=== PATIENT | male | born 1945 | race Caucasian/White ===

== ENCOUNTER 2020-05-23 10:21 | Emergency (ER) | payer MEDICARE, OTHER, SELFPAY ==
[2020-05-23 10:22] VITALS: BP 147/94; PULSE 117; RESP 18; TEMP 36.4; O2SAT 97; BMI 29.4
--- NOTE | 2020-05-23 10:37 | CT_ITS ---
STUDY: CTA CHEST REASON FOR EXAM: Male, 74 years old. SOB SINCE FRIDAY RADIATION DOSAGE (If Supplied By Facility): CTDIvol = ( 18.25 ) mGy, DLP = ( 555.92 ) mGycm TECHNIQUE: The examination was performed with the intravenous administration of 100 CC ISOVUE 370. Post-processing of the angiographic images was performed, with multiplanar reformation and 3D reconstruction. Individualized dose optimization techniques were used for this CT. COMPARISON: None. FINDINGS: Normal enhancement of the main pulmonary artery and right and left pulmonary arteries. Normal enhancement of the bilateral peripheral pulmonary arteries. There is no demonstrated pulmonary embolism. There is atherosclerotic calcification of the aortic arch with tortuosity. There is no demonstrated aortic dissection. Normal heart and pericardium. Normal mediastinum. Normal hilar regions. Normal visualized trachea and bronchi. The lungs are well expanded. Normal pulmonary parenchyma. Normal pleura. Normal chest wall structures. There is mild old compression fracture of T3. Normal visualized upper abdomen. CT/CTA Chest W/WO Contrast IMPRESSION: No demonstrated pulmonary embolism or arterial dissection. Electronically Signed: Kunal Jaffe, at 12:19 EDT Tel , Service support ,
--- NOTE | 2020-05-23 10:37 | EKG12_ITS ---
Test Reason : SOB Blood Pressure : / mmHG Vent. Rate : 105 BPM Atrial Rate : 105 BPM P-R Int : 144 ms QRS Dur : 096 ms QT Int : 340 ms P-R-T Axes : 033 -49 058 degrees QTc Int : 449 ms Sinus tachycardia with occasional Premature ventricular complexes Left axis deviation Inferior infarct , age undetermined Abnormal ECG Confirmed by VIVIAN SULLIVAN ([id number]), editor book APRIL MCKENNA ([id number]) on 05/29/2020 9:55:08 AM Referred By: JOSE Confirmed By:VIVIAN SULLIVAN
--- NOTE | 2020-05-23 10:38 | ED.VISSUMM ---
- ER Visit Summary Date of Service: 05/23/20 Chief Complaint: Shortness of breath History of Present Illness: The patient is a 74 M who presents with shortness of breath. He has had this for the past 4 days. He states is getting a little bit worse. He tried exerting himself more today and it caused more shortness of breath. He has no cough. No fevers. He denies chest pain. No history of DVT or PE. He denies any leg swelling. He has a history of prostate cancer with metastases. He is on chemotherapy currently. He recently started a new chemotherapy medications. His oncologist directed him to the ER for further evaluation of the shortness of breath. Physical Examination: Vital signs reviewed. HEENT exam unremarkable. Heart is tachycardic and regular rhythm without murmurs. Lungs are clear to auscultation. Abdomen is soft and nontender. Extremities reveal no edema. Skin exam normal. Neurologic exam normal. Test Results: EKG is sinus rhythm with rate of 105. No ST changes. Laboratory studies show a white blood count of 1.6, platelets of 104. Sodium 135. Troponin is normal. BNP 14. CT of the chest reveals no acute abnormalities. Emergency Department Course and Treatment: The patient feels well laying in bed. His shortness of breath does get worse with exertion. I do not feel that this is cardiac in nature. His EKG and troponin are normal. His repeat heart rate is 95. I discussed this with Dr. Marcus, on-call for Dr. Bell. They feel that likely may be due to his chemotherapy medications as he just had tecentriq added to his carboplatin and etoposide. Patient has a follow-up tomorrow to have outpatient ultrasounds of his legs. I do not feel these need to be done today as he has no swelling or pain in his legs. Patient will be discharged. Treatment Plan: [] Disposition: Discharge Impression: Dyspnea This note was generated with [email or web address] dictation software. It may contain incorrect words, spelling, and punctuation that were not noted in review of the chart prior to signing ED Disposition - Plan for ED Patient: Disposition: Home or Assisted Living Instructions: ED Dyspnea Referrals: [facility] Doctor,Out of [NON-STAFF] - Mauro Bell DO [STAFF PHYSICIAN] -
[2020-05-23 10:39] VITALS: BP 147/94; PULSE 117; RESP 18; TEMP 36.4; O2SAT 97
--- NOTE | 2020-05-23 10:40 | NURSING ---
NO OLD EKGS
[2020-05-23 11:07] LABS: Absolute Lymphocyte Count 0.46 X10^3/uL (0.83-4.51); Absolute Neutrophil Count 0.9 X10^3/uL (2.0-7.7); Basophil# 0.02 X10^3/uL; Basophil% 1.3 % (0-1); Eosinophil# 0.03 X10^3/uL; Eosinophils% 1.9 % (0-5); Hematocrit 37.3 % (40-54); Hemoglobin 12.6 g/dL (13.0-16.5); Lymphocyte # 0.46 X10^3/ul (4.0); Lymphocyte % 29.5 % (19-41); Mean Corp Hgb Conc 33.8 g/dL (32-36); Mean Corpuscular Hgb 29.7 pg (27.0-32.0); Mean Platelet Vol. 9.4 fl (6.2-12.0); Monocyte% 6.4 % (0-10); NRBC Flagged by Analyzer 0 % (0-5); Neutrophil # 0.94 X10^3/uL (2.7-7.7); Neutrophil % 60.3 % (47-70); POSITIVE DIFFERENTIAL YES; POSITIVE MORPHOLOGY YES; Platelet Count 104 K/mm3 (150-450); RBC Distribution Width CV 14.8 % (11.6-14.6); RBC Distribution Width SD 47.5 fl (35.1-43.9); Red Blood Count 4.24 M/mm3 (4.6-6.2); White Blood Count 1.6 K/mm3 (4.4-11.0)
[2020-05-23 11:24] LABS: Anion Gap 7 (5-15); BUN 26 mg/dL (7-18); BUN/Creat Ratio 23.2 RATIO (10-20); Calcium,Total 9.4 mg/dL (8.5-10.1); Chloride 104 mmol/L (98-107); Creatinine, Serum 1.12 mg/dL (0.70-1.30); EST Glomerular Filtration Rate 68 mL/min (>60); Est Glom Filt Rate - Afr Amer 82 mL/min (>60); Estimated Creatinine Clearance 63.51 ml/min; Glucose 150 mg/dL (74-106); Potassium 4.3 mmol/L (3.5-5.1); Sodium Level 135 mmol/L (136-145)
[2020-05-23 11:27] LABS: Differential Indicated SCAN CRITERIA MET
[2020-05-23 11:28] LABS: Dohle Bodies 4+
[2020-05-23 11:31] VITALS: BP 164/85; PULSE 112; RESP 18; TEMP 36.4; O2SAT 97
[2020-05-23 12:00] VITALS: BP 173/100; PULSE 96; RESP 18; TEMP 37.2; O2SAT 98
--- NOTE | 2020-05-23 12:21 | ED.RN ---
isolation precautions not ordered for patient due to low clinical suspicion by ed dr. dr coronado is testing patient related to patient's request for testing. carli kwon rn [id number]
[2020-05-23 12:27] VITALS: BP 173/100; PULSE 95; RESP 17; O2SAT 96
[2020-05-23 12:59] VITALS: BP 170/100; PULSE 96; RESP 15; O2SAT 97
[2020-05-24 00:18] LABS: Reactive Lymphocyte RARE
[2020-05-24 12:48] LABS: Pathologist Review Reviewed
== END 2020-05-23 13:00 | disposition home or self-care (01) ==
PROVIDERS: Emergency Provider Emergency Medicine
DX: R06.00 Dyspnea, unspecified (principal); C61 Malignant neoplasm of prostate; C79.9 Secondary malignant neoplasm of unspecified site; Z79.82 Long term (current) use of aspirin; Z79.899 Other long term (current) drug therapy
CPT/HCPCS: 71275; 80048; 83880; 84484; 85025; 87635; 93005; 94799; 99284; Q9967; A4216; U0003

== ENCOUNTER → 2020-07-13 07:13 | Outpatient (CLI) | payer MEDICARE, OTHER, SELFPAY ==
[2020-07-13 07:58] VITALS: BP 131/65; PULSE 79; RESP 16; TEMP 36.7; O2SAT 100; BMI 29.7
[2020-07-13] MEDS: 0.9% NaCl VAD Flush IV (08:47)
[2020-07-13 09:02] VITALS: BP 119/70; PULSE 90; RESP 16; TEMP 37.1; O2SAT 100
[2020-07-13 10:02] VITALS: BP 117/63; PULSE 82; RESP 16; TEMP 36.7; O2SAT 100
[2020-07-13 10:42] VITALS: BP 128/59; PULSE 80; RESP 16; TEMP 36.9; O2SAT 100
== END ==
PROVIDERS: Referring Provider Internal Medicine Hematology & Oncology; Visit Provider Internal Medicine Hematology & Oncology
DX: D64.81 Anemia due to antineoplastic chemotherapy (principal); T45.1X5A Adverse effect of antineoplastic and immunosuppressive drugs, initial encounter; Y92.9 Unspecified place or not applicable
CPT/HCPCS: 36415; 36430; 86850; 86900; 86901; 86920; 86922; J7040; P9016; A4216

== ENCOUNTER → 2020-12-19 12:51 | Outpatient (CLI) | payer MEDICARE, OTHER, SELFPAY ==
[2020-07-13 07:58] VITALS: BMI 29.7
[2020-12-19 12:59] VITALS: BP 136/68; PULSE 94; RESP 16; TEMP 36.1; O2SAT 100; BMI 27.8
[2020-12-19] MEDS: 0.9% NaCl VAD Flush IV (13:21)
[2020-12-19 13:46] VITALS: BP 121/66; PULSE 90; RESP 16; TEMP 37; O2SAT 99
[2020-12-19 14:16] VITALS: BP 117/52; PULSE 79; RESP 16; TEMP 36.7; O2SAT 97
== END ==
PROVIDERS: Referring Provider Internal Medicine Hematology & Oncology; Visit Provider Internal Medicine Hematology & Oncology
DX: D64.81 Anemia due to antineoplastic chemotherapy (principal); T45.1X5A Adverse effect of antineoplastic and immunosuppressive drugs, initial encounter; Y92.9 Unspecified place or not applicable
CPT/HCPCS: 36430; 86900; 86901; 86965; J7040; P9035; A4216

== ENCOUNTER → 2020-12-26 10:15 | Outpatient (CLI) | payer MEDICARE, OTHER, SELFPAY ==
[2020-12-19 12:59] VITALS: BMI 27.8
--- NOTE | 2020-12-26 10:30 | CT_ITS ---
STUDY: CT CHEST, ABDOMEN T PELVIS WITH CONTRAST REASON FOR EXAM: Male, 75 years old. 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 Multiplanar coronal and sagittal images were reformatted. Individualized dose optimization techniques were used for this CT. COMPARISON: No relevant priors. FINDINGS: CHEST There are mild interstitial increased opacities in the lungs. There is no demonstrated pleural abnormality. There are calcifications of the coronary arteries. Normal mediastinum. Normal hilar regions. Normal unenhanced pulmonary arteries. There is atherosclerotic calcification of the aortic arch with tortuosity and elongation of the aortic arch and descending thoracic aorta. There are multi-level degenerative changes of the thoracic spine. There is 0.9 cm nonspecific sclerosis of the T10 vertebra and of the lower cervical spine. There are multiple enhancing masses in the liver. ABDOMEN The visualized lung bases are unremarkable. The visualized portions of the heart are within normal limits. There are multiple, greater than 10 low density enhancing masses of the liver measuring up to 4.5 cm. There are multiple gallstones. There is mild splenomegaly. Normal pancreas. Normal bilateral adrenal glands. Normal right kidney. There is 0.5 cm hypodensity compatible with cyst of the left kidney. Normal visualized stomach. There is postoperative change involving small intestine and colon. There is non-visualization of the appendix. There is diffuse atherosclerotic calcification of the abdominal aorta, without a demonstrated aneurysm. Normal inferior vena cava. Normal retroperitoneum. There is urostomy in the right lower abdomen. There are diffuse degenerative changes of the visualized lumbar spine. PELVIS Postoperative change with resection of the urinary bladder. There is urostomy in the right lower abdomen. Postoperative changes of small intestine and visualized colon. There is no pelvic fluid. There is no pelvic lymphadenopathy or mass lesion. Normal visualized pelvic arteries. Postoperative changes in abdominal wall. There is sclerosis of the right sacrum. There is complex fluid and air collection at the iliopsoas bursa. CT/CT Chest, Abd, Pel w/Contrast IMPRESSION: Postoperative changes including cystectomy and ileal conduit with right lower quadrant urostomy. No hydronephrosis. No obstruction. Multiple masses in the liver consistent with metastatic disease. Sclerotic osseous lesions consistent with metastatic disease. Multiple gallstones. No biliary dilatation. Splenomegaly. Iliopsoas bursal collection containing fluid and air. Electronically Signed: Messi Tiwari MD at 11:30 EDT , Service support ,
== END ==
PROVIDERS: Referring Provider Internal Medicine Hematology & Oncology; Visit Provider Internal Medicine Hematology & Oncology
DX: R91.8 Other nonspecific abnormal finding of lung field (principal); C79.71 Secondary malignant neoplasm of right adrenal gland; C67.9 Malignant neoplasm of bladder, unspecified; C61 Malignant neoplasm of prostate; C7A.1 Malignant poorly differentiated neuroendocrine tumors; C79.51 Secondary malignant neoplasm of bone; D64.81 Anemia due to antineoplastic chemotherapy; T45.1X5A Adverse effect of antineoplastic and immunosuppressive drugs, initial encounter; Y92.9 Unspecified place or not applicable
CPT/HCPCS: 71260; 74177; 86850; 86900; 86901; 86920; 86922; Q9967

== ENCOUNTER 2020-12-27 07:51 | Outpatient (CLI) | payer MEDICARE, OTHER, SELFPAY ==
[2020-12-19 12:59] VITALS: BMI 27.8
[2020-12-27] VITALS (7 sets, daily range): BP systolic 100–124; BP diastolic 52–65; PULSE 62–94; RESP 16; TEMP 36–37.1; O2SAT 98–100; BMI 27.2
== END 2020-12-27 16:00 | disposition home or self-care (01) ==
LOC: MEDOUTP 07:52
PROVIDERS: Referring Provider Internal Medicine Hematology & Oncology; Visit Provider Internal Medicine Hematology & Oncology
DX: D64.81 Anemia due to antineoplastic chemotherapy (principal); T45.1X5A Adverse effect of antineoplastic and immunosuppressive drugs, initial encounter; Y92.9 Unspecified place or not applicable
CPT/HCPCS: 36430; 86644; 86850; 86900; 86901; 86920; 86922; P9016; A4216

== ENCOUNTER 2021-01-15 07:36 | Day surgery (SDC) | payer MEDICARE, OTHER, SELFPAY ==
[2020-12-27 08:22] VITALS: BMI 27.2
--- NOTE | 2021-01-03 12:00 | NURSING ---
PATIENT HAD PFIZER VACCINE DOSE 2 12/22/20
[2021-01-15 08:17] VITALS: BP 142/68; PULSE 90; RESP 16; TEMP 36.7; O2SAT 98; BMI 26.5
[2021-01-15 08:41] LABS: Absolute Lymphocyte Count 0.66 X10^3/uL (0.83-4.51); Basophil# 0.01 X10^3/uL; Basophil% 0.2 % (0-1); Eosinophil# 0.03 X10^3/uL; Eosinophils% 0.5 % (0-5); Lymphocyte # 0.66 X10^3/ul (4.0); Lymphocyte % 10.1 % (19-41); Mean Corpuscular Hgb 28.9 pg (27.0-32.0); Mean Corpuscular Volume 90.3 fL (80-94); Mean Platelet Vol. 9.8 fl (6.2-12.0); Monocyte# 0.69 X10^3/uL; Monocyte% 10.6 % (0-10); NRBC Flagged by Analyzer 0 % (0-5); Neutrophil # 5.02 X10^3/uL (2.7-7.7); Neutrophil % 76.6 % (47-70); Platelet Count 118 K/mm3 (150-450); RBC Distribution Width CV 19.2 % (11.6-14.6); RBC Distribution Width SD 51.2 fl (35.1-43.9); Red Blood Count 2.77 M/mm3 (4.6-6.2); White Blood Count 6.5 K/mm3 (4.4-11.0)
--- NOTE | 2021-01-15 09:51 | HP.PCM_ITS ---
History and Physical Date of Admission: 01/15/21 HISTORY AND PHYSICAL ? Landon Santo 1945 ? ? REFERRING PHYSICIAN: ??Mauro Bell DO ? CHIEF COMPLAINT: ??No chief complaint on file. ? HPI: The patient is a 75 year old adult with a diagnosis of?Vascular catheter fitting or adjustment ?(primary encounter diagnosis). ?Landon is currently scheduled to undergo chemotherapy and needs vascular access for treatment. ?The patient denies a prior history of central venous access. ? ? The patient is?right?hand dominant. ? ? The patient is being seen by me today at the request of ?Arabella?for my opinion and advice regarding port.? ? ? PAST MEDICAL HISTORY PAST MEDICAL HISTORY Diagnosis Date ? BPH (benign prostatic hyperplasia) ? ? Colon tumor ? ? Diverticulitis ? ? Dry eye ? ? Hyperlipidemia ? ? Malignant neoplasm of prostate (HCC) ? ? ? PAST SURGICAL HISTORY PAST SURGICAL HISTORY Procedure Laterality Date ? ANESTHESIA TOTAL CYSTECTOMY ? 10/15/2017 ? APPENDECTOMY ? at 16/17 years old ? COLONOSCOPY ? 2011 ? started age 40 ? LAPAROSCOPIC HEMICOLECTOMY ? 10/15/2017 ? d/t diverticulitis ? PAST SURGICAL HISTORY OF ? 1971 ? Repair Left tibia fx ? PROSTATECTOMY;RADICAL RETROPUBIC ? 2014 ? TOTAL KNEE REPLACEMENT ? 05/18/2013 ? Knee replacement, total ? ? CURRENT MEDICATIONS Current Outpatient Medications Medication Sig Dispense Refill ? sulfamethoxazole-trimethoprim (BACTRIM DS,SEPTRA DS) 800-160 mg per tablet Take 1 tablet by mouth once daily. 90 tablet 3 ? acyclovir (ZOVIRAX) 400 mg tablet Take 1 tablet by mouth twice daily. 180 tablet 3 ? OTC PRODUCT Catalyn: Take three tablets by mouth once daily. ? ? ? loratadine (CLARITIN) 10 mg tablet Take 10 mg by mouth once daily as needed. ? ? ? naproxen sodium (ALEVE) 220 mg cap Take 2 Each by mouth daily at bedtime. ? ? ? ondansetron (ZOFRAN) 8 mg tablet Take 1 tablet by mouth every 8 hours as needed (For chemo induced nausea). FOR NAUSEA 30 tablet 2 ? calcium carbonate/vitamin D2 (CALCIUM 600 WITH VITAMIN D ORAL) Take 1 tablet by mouth once daily. ? psyllium husk (METAMUCIL ORAL) Take 2 Tablespoonsful by mouth once daily. ? pantoprazole DR (PROTONIX) 40 mg tablet Take 40 mg by mouth once daily. Using PRN ? atorvastatin 40 mg tablet Take 40 mg by mouth once daily. ? ? ? aspirin 325 mg tablet Take 325 mg by mouth once daily. ? ? ? [place]-3 Fatty Acids-Vitamin E (FISH OIL) 1,000 mg cap Take 1 capsule by mouth once daily. ? No current facility-administered medications for this visit. ? ALLERGIES:?Patient has no known allergies. ? PERSONAL HISTORY:? SOCIAL HISTORY Social History ? Tobacco Use ? Smoking status: Former Smoker ? ? Packs/day: 1.00 ? ? Years: 9.00 ? ? Pack years: 9.00 ? ? Types: Cigarettes ? ? Quit date: 01/08/2008 ? ? Years since quittin.9 ? Smokeless tobacco: Never Used Vaping Use ? Vaping Use: Never used Substance Use Topics ? Alcohol use: Yes ? ? Comment: 4 beers / week ? Drug use: No ? FAMILY HISTORY:? FAMILY HISTORY FAMILY HISTORY Problem Relation Age of Onset ? Ischemic Heart Disease Father ? ? other (Bone Cancer) Father ? ? other (Lung Cancer) Mother ? ? Cancer Sister ? ? REVIEW OF SYMPTOMS: ??The review of systems data was entered by the nurse and reviewed by me ? Nursing Notes: Nadine Tavares RN ?01/01/2021 ?4:28 PM ?Signed REVIEW OF SYSTEMS: ?General:???The patient denies fatigue, denies weight loss, denies weight gain, denies feeling hot, and denies feelings of cold. ?Eyes: ?The patient denies glaucoma, denies eye injury/surgery, does not wear glasses or contacts. ?Ear/Nose/Throat: ?The patient denies allergies, denies hayfever, denies ear infections, and denies bloody noses. ?Cardiovascular: ?The patient denies chest pain, denies heart disease, denies high blood pressure,denies cardiac stent, denies prior heart attack, denies irregular heart beat, notes high cholesterol, ?denies poor circulation, denies heart failure, other cardiac issues, denies claudication, denies cold feet, denies peripheral arterial stent. ?Respiratory: ?The patient denies tuberculosis, denies pneumonia, denies frequent cough, denies pulmonary embolism, denies shortness of breath, and denies coughing up blood. ?Gastrointestinal: ?The patient denies difficulty swallowing, notes acid reflux, denies ulcers, denies vomiting, denies jaundice/hepatitis, denies gallbladder problems, denies black or tarry stools, denies hemorrhoids, denies bleeding from rectum, denies diverticulitis, denies constipation, denies diarrhea, denies loss of stool control, and denies hernias. ?Kidney/Bladder: ?The patient denies kidney stones, notes urine infections, and denies bloody urine. ?Skin: ?The patient notes a history of skin cancer, denies bleeding/changing moles, and denies a history of skin rash. ?Neurologic: ?The patient denies a history of epilepsy/convulsions, denies headaches, denies head/spinal injuries, and denies stroke/TIA. ?Psychiatric: ?The patient denies psychiatric medications, denies depression, and denies voices, denies substance abuse. ?Endocrine: ?The patient denies thyroid disorders, denies diabetes, and denies hormonal problems. ?Hematologic: ?The patient denies a history of bruising, denies bleeding, and denies anemia, denies blood clots. ?Infections: ?The patient denies a history of measles and mumps, denies rheumatic fever, and denies sexually transmitted diseases. ?Musculoskeletal: ?The patient denies back pain/injury, denies back problems, denies sciatica, denies knee/foot trouble, denies arthritis, or denies gout. ? ? When was patient's last Mammogram screening? N/A ? ?Last Colonoscopy: ?unknown ? Nadine Tavares RN ? ? PHYSICAL EXAMINATION: ? General: ?The patient is 75 year old adult, well nourished, well hydrated in no acute distress. ?The patient is oriented to time, place, and person. ? VITALS:?There were no vitals taken for this visit.?There is no height or weight on file to calculate BMI.? ? HEENT: ?Normal cephalic, ataumatic, pupils are equally round, sclera are anict cy, mucous membranes are moist, oropharynx is clear. ?Neck has no masses, asymmetry or lymphadenopathy. ?Thyroid is unremarkable. ? Respiratory: ?Clear to auscultation and percussion. ?Normal respiratory excursion and pattern. ? Cardiac: ?Examination is regular rate and rhythm. ? Abdominal exam: ?Soft, nontender, ?with no palpable masses. ?No hepatosplenomegaly. ?No palpable hernias. ? Rectal exam:??exam deferred ? Extremities: ?no clubbing, cyanosis or edema. ?No adenopathy. ? Other: ? ? LABORATORY VALUES: As Noted ? RADIOLOGIC STUDIES: ?As Noted ? Assessment ? IMPRESSION:??Vascular catheter fitting or adjustment ?(primary encounter diagnosis), need for IV access ? PLAN: ??I plan to perform a right internal jugular?port a cath placement. ?The planned surgical procedure was discussed extensively with the patient. ?The risks, benefits, anticipated outcomes and possible complications were mentioned. ?My staff has also explained the procedure in understandable terms and the patient was given the option to take printed material concerning the planned procedure. ?The patient had the opportunity to ask questions concerning the planned procedure. ?The patient freely consents to the planned procedure. ? Planned Procedure:???right??Internal Jugular Portacath - [id number] ? Patient Weight ?Last 1 Encounter Wt Readings: ???Date: ?Wt: ???12/26/2020 ??91.2 kg (201 lb) ? Antibiotic:???Ancef 2gm IVPB carton counter feeder to OR ? Planned Anesthetic:?MAC with local? I?wont?plan to access the port at the time of surgery. ? Diagnoses:?(Z45.2) Vascular catheter fitting or adjustment ?(primary encounter diagnosis) ? ? ? The patient is being seen by me today at the request of ?for my opinion and advice regarding Vascular catheter fitting or adjustment ?(primary encounter diagnosis).? ? COVID (Procedure Consent) Procedure Criteria ? Procedure Criteria: Yes Elective ?The surgeon/proceduralist and patient have discussed in detail the risk of exposure to and/or potential harm posed by the COVID-19 virus with having a surgery/procedure at this time versus the risk of??delaying the surgery/procedure. It is not possible to know either the risk of delaying the surgery or procedure or chance of getting an infection with perfect accuracy, but a joint decision was made between the patient and the surgeon/proceduralist ?to proceed at this time with the scheduled surgery/procedure as indicated on the consent form. ? Cayden Amado III, MD I have re-examined the patient. There are no clinical changes since date of exam.
[2021-01-15] MEDS: Cefazolin 2 GM in 0.9% Normal Saline 100 ML IV (11:13)
[2021-01-15] MEDS: Bupivacaine Mpf 0.5% 30 ML VIAL (11:36)
[2021-01-15] MEDS: Lidocaine 1% (30 ml sdv) 30 ML Vial (11:36)
--- NOTE | 2021-01-15 11:43 | PCM.OPRPT ---
Problem List (1) Vascular catheter fitting or adjustment Status: Acute Report of Operation Date of Procedure: 01/15/21 Pre-Operative Diagnosis: Vascular fitting and adjustment Post-Operative Diagnosis: Same Surgery/Procedure Performed:: Placement of a right internal jugular PowerPort. Type of Anesthesia:: Local MAC Anesthesiologist: Bryn Mcmullen Description of Procedure: Patient was brought into the operating room. Placed in the supine position. Under a nice MAC anesthetic his head was placed in the headdown position I ultrasound the neck identifying the internal jugular vein marked the neck and chest appropriately the neck and chest were then sterilely prepped and draped in usual fashion. Local was injected into the neck. Seldinger's technique was used to gain access to the right internal jugular vein. Guidewire was placed over the needle the needle was removed fluoroscopy was used to confirm proper placement of the guidewire into the superior vena cava. Local was injected into the chest. An incision was made a pocket was created with electrocautery for the port. A skin droian was made in the neck. Dilator and sheath were placed over the guidewire dilator and guidewire were removed. Single-lumen catheter was placed into the sheath and the sheath was removed. Fluoroscopy was used once again to confirm proper length of the catheter. Local was injected in the subcutaneous tissues I tunneled from the pocket over the collarbone into the neck and brought the catheter down. Cut the catheter to length placed the locking hub on the catheter secured the port onto the catheter and then secured the 2 with a locking hub. It flushed and irrigated well and was flushed with 4 cc of Hepflush. The port was secured into the pocket with 2 sutures of 2-0 Prolene. Skin incisions were closed with subcuticular stitches of 3-0 Vicryl and 4-0 Monocryl. Dermabond was applied sterile dressings were applied patient tolerated the procedure well. Portable chest x-ray was ordered. - Admit VTE Documentation VTE Present on Admission: No VTE Mechan Device Prophylaxis: SCD's VTE Pharm Prophylaxis ordered?: No Reason prophylaxis not ordered:: Treatment Not Indicated
--- NOTE | 2021-01-15 11:48 | DCINST_ITS ---
Discharge Diet: No Restrictions - Pain medication may cause nausea. You should typically eat light foods as you take your pain medication. Discharge Activity: May Shower - with the bandage in place 1-2 days after surgery. DO NOT SHOWER WHEN YOUR PORT IS ACCESSED. Additional Activity Instructions:: May not drive, work with heavy equipment, or sign legal documents for [address] if you are no longer taking narcotic pain medications. You may drive when you are no longer taking pain medications. Additional Dressing/Incision Instructions:: Leave the bandage on for 2-3 days. When you remove the bandage, leave the steri-strips intact until they fall off. Allergies/Adverse Reactions: Allergies No Known Allergies Allergy (Verified 01/15/21 07:57) Medications to take at Discharge Aspirin 325 mg PO DAILY@0800 05/23/20 Atorvastatin Calcium 40 mg PO DAILY 05/23/20 Calcium Carb/Vitamin D [Caltrate-600 With Vit D Tab] 2 tab PO DAILY 05/23/20 Catalyn 2160 3 tab PO DAILY 05/23/20 Dicyclomine HCl [Bentyl] 10 mg PO BID 05/23/20 [place]-3 Fatty Acids/Fish Oil [[place] 3 1,000 mg Softgel] 1 ea PO DAILY 05/23/20 Pantoprazole Sodium [Protonix] 40 mg PO DAILY 05/23/20 Psyllium Husk [Daily Fiber] 0.4 gm PO DAILY 05/23/20 Smz/Tmp Ds [Bactrim Ds] 1 tab PO QODAY 05/23/20 Oxycodone HCl/Acetaminophen [Percocet 5/325] 1 - 2 tablet PO Q4H PRN PRN 5 Days #30 tablet 01/15/21 The following prescriptions were given: Oxycodone HCl/Acetaminophen [Percocet 5/325] 1 - 2 tablet PO Q4H PRN PRN 5 Days #30 tablet PRN Reason: Pain Transmission Status: Sent to [facility] Primary Care Physician: TAMRA DUNAWAY [Other] Test Results: Test results from this visit will be discussed in further detail at your follow- up appointment, if applicable. Please Follow Up With: Michelle Moses, [place] - [phone] When: Please plan to follow up in 7 days in the office.
[2021-01-15 12:04] VITALS: BP 109/64; BP 142/68; PULSE 77; RESP 16; TEMP 36.1; O2SAT 98
[2021-01-15 12:10] VITALS: BP 124/65; BP 142/68; PULSE 72; RESP 16; O2SAT 98
[2021-01-15 12:15] VITALS: BP 119/66; BP 142/68; PULSE 73; RESP 16; O2SAT 100
--- NOTE | 2021-01-15 12:15 | RAD_ITS ---
STUDY: X-RAY CHEST REASON FOR EXAM: Male, 75 years old. Line TECHNIQUE: Single AP portable view of the chest. COMPARISON: None. FINDINGS: A right-sided leona catheter as been placed. The tip is at the junction of the superior vena cava and right atrium. The lungs are clear and expanded. There is no demonstrated pleural abnormality. Normal size heart. Normal mediastinum and alexander. Normal visualized pulmonary arteries. There is atherosclerotic calcification of the aortic arch with tortuosity. There are diffuse degenerative changes of the visualized thoracic spine. Normal visualized ribs, clavicles, and shoulders. There is no demonstrated abnormality of the visualized soft tissue structures of the upper abdomen. RAD/Chest 1 View (Portable) IMPRESSION: The tip of the right leona catheter is at the junction of the superior vena cava and right atrium. Electronically Signed: Will Nixon MD at 12:53 EDT , Service support ,
[2021-01-15 12:23] VITALS: BP 124/64; BP 142/68; PULSE 74; RESP 16; TEMP 36.1; O2SAT 99
[2021-01-15 13:20] VITALS: BP 142/68
== END 2021-01-15 13:24 | disposition home or self-care (01) ==
LOC: SDC 07:36 → AC 07:38
PROVIDERS: Internal Medicine Hematology & Oncology; Referring Provider Surgery; Visit Provider Surgery
PROC: (CPT 36561; principal; 2021-01-15 10:15)
DX: Z45.2 Encounter for adjustment and management of vascular access device (principal); C61 Malignant neoplasm of prostate; E78.5 Hyperlipidemia, unspecified; N40.0 Benign prostatic hyperplasia without lower urinary tract symptoms; K21.9 Gastro-esophageal reflux disease without esophagitis; E78.00 Pure hypercholesterolemia, unspecified; Z87.19 Personal history of other diseases of the digestive system; Z79.82 Long term (current) use of aspirin; Z79.899 Other long term (current) drug therapy; Z87.891 Personal history of nicotine dependence
CPT/HCPCS: 00532; 36561; 71045; 77001; 85025; J7120

== ENCOUNTER → 2021-01-16 07:56 | Outpatient (CLI) | payer MEDICARE, OTHER, SELFPAY ==
[2021-01-15 08:17] VITALS: BMI 26.5
[2021-01-16] VITALS (7 sets, daily range): BP systolic 105–133; BP diastolic 61–74; PULSE 74–88; RESP 16; TEMP 35.9–36.6; O2SAT 95–100; BMI 26.4
[2021-01-16] MEDS: 0.9% NaCl Peripheral Flush Adult/Peds IV (08:28)
== END ==
PROVIDERS: Referring Provider Internal Medicine Hematology & Oncology; Visit Provider Internal Medicine Hematology & Oncology
DX: C75.9 Malignant neoplasm of endocrine gland, unspecified (principal)
CPT/HCPCS: 36415; 36430; 86644; 86850; 86900; 86901; 86920; 86922; J7040; P9040; A4216

== ENCOUNTER 2021-04-28 21:17 | Emergency (ER) | payer MEDICARE, OTHER, SELFPAY ==
[2021-01-16 08:23] VITALS: BMI 26.4
[2021-04-28 21:18] VITALS: BP 106/59; PULSE 96; RESP 15; TEMP 37.2; O2SAT 97; BMI 25.0
--- NOTE | 2021-04-28 21:39 | EKG12_ITS ---
Test Reason : CONFUSION Blood Pressure : / mmHG Vent. Rate : 095 BPM Atrial Rate : 095 BPM P-R Int : 144 ms QRS Dur : 100 ms QT Int : 352 ms P-R-T Axes : 036 -39 046 degrees QTc Int : 442 ms Sinus rhythm with Premature atrial complexes Left axis deviation Inferior infarct , age undetermined Abnormal ECG Confirmed by RAHUL TOVAR, BENJAMÍN ([id number]), associate entertainment editor HECTOR CLARK ([id number]) on 05/01/2021 9:39:40 AM Referred By: KENZIE Confirmed By:BENJAMÍN KAY MD
--- NOTE | 2021-04-28 21:39 | CT_ITS ---
STUDY: CT BRAIN WITHOUT CONTRAST REASON FOR EXAM: Male, 75 years old. confusion RADIATION DOSAGE (If Supplied By Facility): CTDIvol = ( 44.99 ) mGy, DLP = ( 846.73 ) mGycm TECHNIQUE: Transaxial CT imaging of the brain was performed without administration of intravenous contrast material. Individualized dose optimization techniques were used for this CT. COMPARISON: No relevant priors. FINDINGS: Normal soft tissue structures. Normal calvarium. Normal size ventricles and extra-axial spaces for the patient''s age. Normal white matter tracts of the cerebral hemispheres. Normal basal ganglia and thalami. Normal brainstem. Normal cerebellum. There is no intracranial hemorrhage. There are no findings of an acute ischemic infarction. Normal visualized paranasal sinuses. CT/Brain/Head without Contrast IMPRESSION: Chronic involutional changes of the brain. No acute hemorrhage Electronically Signed: Chapito Hillman MD at 23:28 EDT , Service support ,
--- NOTE | 2021-04-28 21:41 | EX.ED.DYSGE1 ---
HPI History of Present Illness Chief Complaint: Confusion Detail of Chief Complaint: Increased confusion and weakness over the last week Informant: patient Narrative Narrative: Patient presents to the emergency department with his with complaint of increased confusion and generalized weakness. Patient is a patient of Dr. Mauro Bell who called in to let us know that patient will be coming in for evaluation. 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 states that patient has been sleeping 12 hours a day and is not eaten anything in 2 to 3 days. Patient is generally weak and needs assistance with activities of daily living that normally he would not need. Today he was confused about going to the bathroom and could not figure out if he needed to sit or stand or what he needed to do. Patient is without complaints in the emergency department. He denies headache, chest pain, shortness of breath. Patient denies fever or recent illness. Prior similar symptoms: No PFSH PFSH Home Medications Catalyn 2160 3 tab PO DAILY 05/23/20 [History Last Taken Unknown] aspirin 325 mg PO DAILY@0800 05/23/20 [History Last Taken 12/20/20] atorvastatin 40 mg PO DAILY 05/23/20 [History Last Taken Unknown] calcium carbonate-vitamin D3 2 tab PO DAILY 05/23/20 [History Last Taken Unknown] dicyclomine 10 mg PO BID 05/23/20 [History Last Taken Unknown] omega-3 fatty acids-fish oil 1 ea PO DAILY 05/23/20 [History Last Taken 12/20/20] pantoprazole 40 mg PO DAILY 05/23/20 [History Last Taken Unknown] psyllium husk 0.4 gm PO DAILY 05/23/20 [History Last Taken Unknown] sulfamethoxazole-trimethoprim 1 tab PO QODAY 05/23/20 [History Last Taken Unknown] Allergy/AdvReac Type Severity Reaction Status Date / Time No Known Allergies Allergy Verified 04/28/21 21:20 Social History Smoking Status: Former smoker ROS ROS ED ROS Narrative Generalized weakness and confusion Constitutional Constitutional ED: Reports systems reviewed and no addt'l complaints, except as documented; Denies body ache(s), change in weight or chills Eyes Eyes: Denies acute decrease in peripheral vision, change in vision, double vision or loss of vision ENT ENT ED: Reports none; Denies ear pain, lip swelling, loss taste/smell, neck pain, otalgia or sore throat Cardiovascular Cardiovascular: Reports none; Denies abdominal pain, chest pain with activity, leg edema, lightheadedness, palpitations, rapid heart rate or syncope Respiratory/Chest Respiratory/Chest: Reports none; Denies change in mental status, dry cough, dyspnea, hemoptysis, shortness of breath at rest or shortness of breath with exertion Gastrointestinal Gastrointestinal: Reports none; Denies abdominal pain, change in stool character, diarrhea, hematemesis, hematochezia, melena, rectal bleeding or vomiting Genitourinary Genitourinary ED: Reports none; Denies abdominal discomfort, anuria, dysuria, genital pain or polyuria Musculoskeletal Musculoskeletal: Reports none; Denies arthralgias, back pain, difficulty walking, extremity pain, muscle weakness or myalgias Integumentary Reports none; Denies abscess or rash Neurologic Neurologic: Reports none; Denies abnormal gait, confusion, focal weakness, frequent falls, headache(s), loss of vision, numbness, paresthesias, radicular pain, vertigo or weakness Psychiatric Psychiatric: Reports systems reviewed and no addt'l complaints, except as documented and none; Denies behavioral changes, confusion, difficulty concentrating, hallucinations, suicidal ideation, tactile hallucinations or visual hallucinations Endocrine Endocrinology: Denies none, cold intolerance, excessive sweating, fatigue or heat intolerance Hematologic/Lymphatic Hematologic/Lymphatic: Reports none; Denies anemia, easy bleeding or easy bruising Allergic/Immunologic Allergic/Immunologic ED: Denies as per HPI, none, lip swelling, mouth swelling, throat swelling, tongue swelling or hives EXAM Physical Exam Const Vital Signs: 04/28/21 21:18 04/28/21 23:20 Temperature 98.9 F 98.9 F Temperature Source Temporal Temporal Pulse Rate 96 93 Respiratory Rate 15 15 Blood Pressure 106/59 L 120/61 Blood Pressure Mean 74 80 Pulse Ox 97 98 Oxygen Delivery Method Room Air Room Air Positive well nourished and well developed General Appearance ED: well developed and NAD HEENT Reports TM's clear and moist mucous membranes normocephalic and atraumatic; Negative for trauma or tenderness Tympanic Membrane ED: Yes TM's clear Eyes PERRL and EOMs intact bilaterally General Eye ED: Negative for pale conjunctiva or scleral icterus Neck no lymphadenopathy, supple and no JVD General: Negative for tenderness Chest Wall inspection of chest normal and palpation of chest normal Chest: Negative for tenderness Resp normal respiratory effort and clear to auscultation bilaterally Effort and Inspection: Negative for respiratory distress or pain with movement Auscultation: Negative for rhonchi, wheezes or diminished lung sounds Cardio regular rate, regular rhythm, S1 normal heart sound, S2 normal heart sound and no murmurs Peripheral Pulses: pulses 2+ throughout GI normal to inspection, nondistended, normoactive bowel sounds, soft to palpation, non-tender, non-distended and no masses Back/Spine no CVA tenderness and no thoracic nor lumbar tenderness Extremity normal to inspection General Extremety ED: Negative for edema General Extremity: Negative for edema Neuro oriented x3, CN's II-XII intact bilaterally, no sensory deficits noted and gait normal Sensorium / Orientation: awake, alert, oriented to person, oriented to place and oriented to time Motor Exam: strength 5/5 throughout and strength abnormal Psych mental status grossly normal Skin no rashes or lesions noted and no wounds MDM MDM MDM Narrative Medical decision making narrative: Results discussed with patient and his . They are now both willing to look at hospice and comfort measures. I feel patient has progressive disease related to his metastatic prostate cancer. Discussed with hospitalist who asked that we have hospice evaluate patient in department. Care of patient turned over to evening physician awaiting evaluation by hospice. Patient states that he does not want to make his suffer anymore and she is having a hard time managing him and caring for him at home at this time. Lab Data Attestation: I reviewed the patient's lab results. Labs: Laboratory Results - last 24 hr 04/28/21 04/28/21 04/28/21 22:15 22:20 22:20 WBC 0.9 L* RBC 2.46 L Hgb 8.0 L Hct 23.8 L MCV 96.7 H MCH 32.5 H MCHC 33.6 RDW Std Deviation 60.0 H RDW Coeff of Mikel 17.1 H Plt Count 104 L MPV 11.9 Immature Gran % (Auto) 0.000 Neut % (Auto) 67.5 Lymph % (Auto) 21.3 [place] % (Auto) 9.0 Eos % (Auto) 1.1 Baso % (Auto) 1.1 H Absolute Neuts (auto) 0.6 L Absolute Lymphs (auto) 0.19 L Nucleated RBC % 0 [address] Review May foll Sodium 132 L Potassium 3.8 Chloride 102 Carbon Dioxide 22.0 Anion Gap 8 BUN 18 Creatinine 1.15 Estim Creat Clear Calc 60.92 Est GFR (MDRD) Af Amer 80 Est GFR (MDRD) Non-Af 66 BUN/Creatinine Ratio 15.7 Glucose 116 H Calcium 8.6 Total Bilirubin 1.10 H AST 157 H ALT 69 H Alkaline Phosphatase 109 Troponin I High Sens 9.8 Total Protein 6.7 Albumin 3.0 L Globulin 3.7 Albumin/Globulin Ratio 0.8 L Urine Color Yellow Urine Clarity Cloudy Urine pH 6.0 Ur Specific [place] 1.015 Urine Protein 100 H Urine Glucose (UA) Normal Urine Ketones Negative Urine Occult Blood 150 H Urine Nitrite Negative Urine Bilirubin Negative Urine Urobilinogen Normal Ur Leukocyte Esterase 25 H Urine RBC 0-5 SEEN Urine WBC 0-5 SEEN Ur Squamous Epith Cells 0-5 SEEN Urine Bacteria 2+ Urine Mucus 0 SEEN Ethyl Alcohol 04/28/21 22:20 WBC RBC Hgb Hct MCV MCH MCHC RDW Std Deviation RDW Coeff of Mikel Plt Count MPV Immature Gran % (Auto) Neut % (Auto) Lymph % (Auto) [place] % (Auto) Eos % (Auto) Baso % (Auto) Absolute Neuts (auto) Absolute Lymphs (auto) Nucleated RBC % Diff Path Review Sodium Potassium Chloride Carbon Dioxide Anion Gap BUN Creatinine Estim Creat Clear Calc Est GFR (MDRD) Af Amer Est GFR (MDRD) Non-Af BUN/Creatinine Ratio Glucose Calcium Total Bilirubin AST ALT Alkaline Phosphatase Troponin I High Sens Total Protein Albumin Globulin Albumin/Globulin Ratio Urine Color Urine Clarity Urine pH Ur Specific [place] Urine Protein Urine Glucose (UA) Urine Ketones Urine Occult Blood Urine Nitrite Urine Bilirubin Urine Urobilinogen Ur Leukocyte Esterase Urine RBC Urine WBC Ur Squamous Epith Cells Urine Bacteria Urine Mucus Ethyl Alcohol < 3.0 Radiography Chest X-Ray - ED: 1 View Diagnostic Testing: Radiology Impression Brain CT 04/28/21 21:39 IMPRESSION: Chronic involutional changes of the brain. 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 at 2239 Reported and signed by: Tamra Luque MD Electronically Signed: Tamra Luque MD at 22:38 EDT Tel , Service support , 1 view chest x-ray obtained interpreted by myself as chronic COPD changes otherwise nothing acute. Radiologist in agreement. EKG Initial EKG: Attestation: I personally reviewed and interpreted this EKG as follows: Comments: Sinus rhythm with a ventricular rate of 95 bpm with old inferior infarct and occasional PACs Prior EKG tracings: available for review Prior: Unchanged Discharge Plan Triage Chief Complaint: Confusion ED Provider: Jacque Garcia Dx/Rx/DC Orders Clinical Impression: Generalized weakness, Adult failure to thrive, Malignant neoplasm of prostate metastatic to bone Prescriptions: No Action atorvastatin 40 MG tablet 40 mg PO DAILY RF: 0 aspirin 325 MG tablet 325 mg PO DAILY@0800 RF: 0 sulfamethoxazole-trimethoprim 1 TABLET tablet 1 tab PO QODAY RF: 0 pantoprazole 40 MG tablet 40 mg PO DAILY RF: 0 dicyclomine 10 MG capsule 10 mg PO BID RF: 0 omega-3 fatty acids-fish oil 1 EACH capsule 1 ea PO DAILY RF: 0 calcium carbonate-vitamin D3 1 TAB tablet 2 tab PO DAILY RF: 0 psyllium husk 0.4 GM capsule 0.4 gm PO DAILY RF: 0 Catalyn 2160 1 TABLET tablet 3 tab PO DAILY RF: 0 Referrals: TAMRA DUNAWAY [Other]
--- NOTE | 2021-04-28 22:00 | RAD_ITS ---
HISTORY: weakness EXAMINATION/TECHNIQUE: XR Chest 1 View COMPARISON: AP chest x-ray from 01/15/21 FINDINGS: LINES/DEVICES: Right jugular power port catheter tip at lower SVC. LUNGS: Stable slightly hyperexpanded lungs. No pulmonary edema. No focal airspace consolidation. No sizable pleural effusion. No pneumothorax detected. MEDIASTINUM AND CARDIOVASCULAR STRUCTURES: Heart normal size. Atherosclerotic calcifications along the aorta. BONES AND SOFT TISSUES: Skeletal degenerative changes. RAD/Chest 1 View (Portable) IMPRESSION: Male COPD and atherosclerotic disease. at 2239 Reported and signed by: Merritt Luque MD Electronically Signed: Merritt Luque MD at 22:38 EDT Tel , Service support ,
[2021-04-28 22:19] LABS: Mucous, Urine 0 SEEN /hpf (<or=2+)
[2021-04-28 22:20] LABS: Color, Urine Yellow (Yellow); Glucose, Dipstick Normal (Normal); Ketone-Dipstick Negative (Negative); Leukocyte Esterase-Dipstick 25 /ul (Negative); Nitrite-Dipstick Negative (Negative); Occult Blood-Urine 150 /ul (Negative); Protein-Dipstick 100 mg/dl (Negative); Specific Gravity, Urine 1.015 (1.002-1.030); Urine Bilirubin Dipstick Negative (Negative); Urine Clarity Cloudy (Clear); Urine Urobilinogen Normal (Normal)
[2021-04-28] MEDS: 0.9% Normal Saline 1,000 ML 1000 ML IV (22:22)
[2021-04-28 22:27] LABS: Bacteria 2+ /hpf (None Seen); Red Blood Cells-Urine 0-5 SEEN /hpf (0-5); Squamous Epithelial Cells - UA 0-5 SEEN /hpf (0-5); White Blood Cells 0-5 SEEN /hpf (0-5)
[2021-04-28 22:40] LABS: Absolute Lymphocyte Count 0.19 X10^3/uL (0.83-4.51); Absolute Neutrophil Count 0.6 X10^3/uL (2.0-7.7); Basophil# 0.01 X10^3/uL; Basophil% 1.1 % (0-1); Eosinophil# 0.01 X10^3/uL; Eosinophils% 1.1 % (0-5); Hematocrit 23.8 % (40-54); Lymphocyte # 0.19 X10^3/ul (0.83-4.51); Lymphocyte % 21.3 % (19-41); Mean Corp Hgb Conc 33.6 g/dL (32-36); Mean Corpuscular Hgb 32.5 pg (27.0-32.0); Mean Corpuscular Volume 96.7 fL (80-94); Mean Platelet Vol. 11.9 fl (6.2-12.0); Monocyte# 0.08 X10^3/uL; NRBC Flagged by Analyzer 0 % (0-5); Neutrophil % 67.5 % (47-70); POSITIVE COUNT YES; POSITIVE DIFFERENTIAL YES; Platelet Count 104 K/mm3 (150-450); RBC Distribution Width CV 17.1 % (11.6-14.6); Red Blood Count 2.46 M/mm3 (4.6-6.2)
[2021-04-28 22:42] LABS: Differential Indicated SCAN CRITERIA MET; White Blood Count 0.9 K/mm3 (4.4-11.0)
[2021-04-28 22:52] LABS: Alcohol, Blood (Medical)-Serum < 3.0 mg/dL
[2021-04-28 23:00] LABS: ALB/GLOB Ratio 0.8 RATIO (0.9-2.4); AST(SGOT) 157 U/L (15-37); Alanine Aminotransfer ALT/SGPT 69 U/L (16-61); Alkaline Phosphatase 109 U/L (45-117); Anion Gap 8 (5-15); BUN 18 mg/dL (7-18); BUN/Creat Ratio 15.7 RATIO (10-20); Calcium,Total 8.6 mg/dL (8.5-10.1); Chloride 102 mmol/L (98-107); Creatinine, Serum 1.15 mg/dL (0.70-1.30); EST Glomerular Filtration Rate 66 mL/min (>60); Est Glom Filt Rate - Afr Amer 80 mL/min (>60); Estimated Creatinine Clearance 60.92 ml/min; Globulin 3.7 g/dL (2.2-4.2); Glucose 116 mg/dL (74-106); Potassium 3.8 mmol/L (3.5-5.1); Protein, Total 6.7 g/dL (6.4-8.2); Sodium Level 132 mmol/L (136-145); Troponin-I HS 9.8 pg/mL (3.0-78.5)
[2021-04-28 23:20] VITALS: BP 120/61; PULSE 93; RESP 15; TEMP 37.2; O2SAT 98
[2021-04-28] MEDS: 0.9% Normal Saline 1,000 ML 150 ML IV (23:35)
[2021-04-29 00:44] VITALS: BP 112/64; PULSE 92; RESP 19; O2SAT 99
--- NOTE | 2021-04-29 02:00 | ED.RN ---
[facility] NURSE IN TO SEE PT, PT AND 2 DAUGHTERS ARE AGREEABLE TO HOSPICE ADMISSION, WOULD LIKE TO TALK TO DR STARK ONE MORE TIME BEFORE HOSPICE ADMISSION. WILL HOSPICE FRIDAY TO FOLLOW UP AFTER TALKING TO DR STARK.
[2021-04-29 02:10] VITALS: BP 111/71; PULSE 93; RESP 15; O2SAT 98
[2021-04-30 12:34] LABS: Pathologist Review Reviewed
== END 2021-04-29 02:10 | disposition home or self-care (01) ==
PROVIDERS: Emergency Provider Emergency Medicine
DX: R53.1 Weakness (principal); R62.7 Adult failure to thrive; C61 Malignant neoplasm of prostate; C79.51 Secondary malignant neoplasm of bone; C78.7 Secondary malignant neoplasm of liver and intrahepatic bile duct; I49.1 Atrial premature depolarization; J44.9 Chronic obstructive pulmonary disease, unspecified; Z79.82 Long term (current) use of aspirin; Z79.899 Other long term (current) drug therapy; Z87.891 Personal history of nicotine dependence
CPT/HCPCS: 70450; 71045; 80053; 81001; 82077; 84484; 85025; 87040; 93005; 96360; 96361; 99284; J7030

== ENCOUNTER 2021-05-17 09:45 | Emergency (ER) | payer MEDICARE, OTHER, SELFPAY ==
[2021-05-17 09:46] VITALS: BP 118/56; PULSE 80; RESP 16; TEMP 36.4; O2SAT 99; BMI 23.9
--- NOTE | 2021-05-17 10:04 | RAD_ITS ---
STUDY: X-RAY - ACUTE ABDOMINAL SERIES REASON FOR EXAM: Male, 75 years old. Constipation . Abdominal pain. TECHNIQUE: Single view of the chest. Supine, and erect view(s) of the abdomen were obtained. COMPARISON: None. FINDINGS: A right-sided portacatheter is in situ with the tip at the junction of the superior vena cava and right atrium. Hyperinflation. Calcified granuloma in the left lower lobe. Normal size heart. Normal mediastinum and alexander. Normal visualized pulmonary arteries. Normal visualized aortic arch and descending thoracic aorta. There is a moderate amount of colonic fecal material. The soft tissue structures of the abdomen and pelvis are unremarkable. There are diffuse degenerative changes of the visualized lumbar spine. RAD/Acute Abdomen Inc Chest IMPRESSION: Moderate amount of fecal material is seen in the colon. Electronically Signed: Will Nixon MD at 11:01 EDT , Service support ,
[2021-05-17 10:27] LABS: Absolute Lymphocyte Count 0.56 X10^3/uL (0.83-4.51); Basophil# 0.01 X10^3/uL; Basophil% 0.1 % (0-1); Eosinophil# 0.01 X10^3/uL; Eosinophils% 0.1 % (0-5); Hematocrit 33.8 % (40-54); Hemoglobin 11.3 g/dL (13.0-16.5); Lymphocyte # 0.56 X10^3/ul (0.83-4.51); Lymphocyte % 3.8 % (19-41); Mean Corp Hgb Conc 33.4 g/dL (32-36); Mean Corpuscular Hgb 33.7 pg (27.0-32.0); Mean Corpuscular Volume 100.9 fL (80-94); Mean Platelet Vol. 11.7 fl (6.2-12.0); Monocyte% 8.1 % (0-10); NRBC Flagged by Analyzer 0 % (0-5); Neutrophil # 13.02 X10^3/uL (2.7-7.7); Neutrophil % 87.5 % (47-70); POSITIVE DIFFERENTIAL YES; POSITIVE MORPHOLOGY YES; Platelet Count 120 K/mm3 (150-450); RBC Distribution Width CV 19.3 % (11.6-14.6); RBC Distribution Width SD 72.4 fl (35.1-43.9); Red Blood Count 3.35 M/mm3 (4.6-6.2); White Blood Count 14.9 K/mm3 (4.4-11.0)
[2021-05-17 10:28] LABS: Differential Indicated SCAN CRITERIA MET
[2021-05-17 10:41] LABS: ALB/GLOB Ratio 0.9 RATIO (0.9-2.4); AST(SGOT) 221 U/L (15-37); Alanine Aminotransfer ALT/SGPT 157 U/L (16-61); Albumin, Serum 3.3 g/dL (3.2-5.0); Alkaline Phosphatase 190 U/L (45-117); Anion Gap 7 (5-15); BUN 21 mg/dL (7-18); BUN/Creat Ratio 20.2 RATIO (10-20); Calcium,Total 9.3 mg/dL (8.5-10.1); Chloride 103 mmol/L (98-107); Creatinine, Serum 1.04 mg/dL (0.70-1.30); EST Glomerular Filtration Rate 74 mL/min (>60); Est Glom Filt Rate - Afr Amer 89 mL/min (>60); Estimated Creatinine Clearance 67.36 ml/min; Globulin 3.7 g/dL (2.2-4.2); Glucose 101 mg/dL (74-106); Potassium 4.1 mmol/L (3.5-5.1); Sodium Level 134 mmol/L (136-145)
[2021-05-17 10:56] LABS: Anisocytosis 1+
--- NOTE | 2021-05-17 12:04 | EDS_ITS ---
HPI History of Present Illness Chief Complaint: Constipation Informant: patient Onset/Context/Timing Onset: Weeks (3-4) Context: Gradual Onset Timing: Continuous Quality: Sharp, burning Location: Rectum Worsened by: Nothing Relieved by: Nothing Narrative Narrative: Patient presents with constipation that has been constant for the past 3 to 4 weeks. Patient states he has been having difficulty having a bowel movement for the past week. Patient states that the 2 weeks prior to that he was not eating much of anything and was not expecting to have a bowel movement. Over the past week he feels pain in his rectum that is sharp and burning. Patient states he has been taking Dulcolax and magnesium citrate with no improvement. Patient states he did have a small liquid bowel movement today. Patient denies any abdominal pain. Patient denies any fevers or chills. Patient denies any nausea or vomiting. PFSH PFS Medical History (Updated 05/17/21 @ 14:[address] Bryn Vences DO) Prostate CA Home Medications Catalyn 2160 3 tab PO DAILY 05/23/20 [History Last Taken Unknown] aspirin 325 mg PO DAILY@0800 05/23/20 [History Last Taken 12/20/20] atorvastatin 40 mg PO DAILY 05/23/20 [History Last Taken Unknown] calcium carbonate-vitamin D3 2 tab PO DAILY 05/23/20 [History Last Taken Unknown] dicyclomine 10 mg PO BID 05/23/20 [History Last Taken Unknown] omega-3 fatty acids-fish oil 1 ea PO DAILY 05/23/20 [History Last Taken 12/20/20] pantoprazole 40 mg PO DAILY 05/23/20 [History Last Taken Unknown] psyllium husk 0.4 gm PO DAILY 05/23/20 [History Last Taken Unknown] sulfamethoxazole-trimethoprim 1 tab PO QODAY 05/23/20 [History Last Taken Unknown] Allergy/AdvReac Type Severity Reaction Status Date / Time No Known Allergies Allergy Verified 05/17/21 09:47 Surgical History (Updated 05/17/21 @ 12:[address] Bryn Vences DO) History of appendectomy Hx of total knee replacement Social History Smoking Status: Former smoker ROS ROS ED Constitutional Constitutional ED: Denies chills or fever(s) Eyes Eyes: Denies blurry vision or change in vision ENT ENT ED: Denies rhinorrhea or sore throat Cardiovascular Cardiovascular: Denies chest pain or palpitations Respiratory/Chest Respiratory/Chest: Denies cough or dyspnea Gastrointestinal Gastrointestinal: Reports constipation; Denies abdominal pain, nausea or vomiting Genitourinary Genitourinary ED: Denies dysuria or hematuria Musculoskeletal Musculoskeletal: Denies back pain or neck pain Integumentary Denies abscess or rash Neurologic Neurologic: Denies headache(s) or weakness Allergic/Immunologic Allergic/Immunologic ED: Denies mouth swelling or urticaria EXAM Physical Exam Const Vital Signs: 05/17/21 09:46 05/17/21 12:17 Temperature 97.6 F L Temperature Source Temporal Pulse Rate 80 82 Respiratory Rate 16 17 Blood Pressure 118/56 L 108/70 Blood Pressure Mean 76 82 Pulse Ox 99 96 Oxygen Delivery Method Room Air Room Air Positive well nourished and well developed General Appearance ED: well developed HEENT Reports moist mucous membranes Neck supple and no JVD Resp normal respiratory effort and clear to auscultation bilaterally Cardio regular rate, regular rhythm and no murmurs GI normal to inspection, nondistended, normoactive bowel sounds and non-tender Palpation: soft Extremity normal to inspection General Extremety ED: Negative for edema or tenderness General Extremity: Negative for edema Neuro oriented x3, CN's II-XII intact bilaterally and no sensory deficits noted Sensorium / Orientation: alert Motor Exam: strength 5/5 throughout Psych mental status grossly normal Skin no rashes or lesions noted MDM MDM MDM Narrative Medical decision making narrative: CBC shows a mild leukocytosis of 14.9. Comprehensive metabolic profile showed a slightly elevated bilirubin of 1.2, AST of 221, ALT of 157, and alk phos of 190. Acute abdominal x-rays were obtained. There are 3 views. On my interpretation, there is a large amount of stool in the colon. There is no evidence of obstruction or perforation. Radiologist also interpreted the x-rays and agrees. Patient was given a soapsuds enema. Patient had minimal improvement with this. Patient was given a repeat soapsuds enema. Lidocaine jelly was applied to the rectum to help prevent the burning sensation. Patient was able to have more results of his enema after this. Patient was instructed to continue his Dulcolax as prescribed. Patient was also instructed that he may take MiraLAX as needed. Patient was instructed to follow-up with his primary care physician and oncologist as scheduled. Patient understood and was agreeable with the plan. All questions were answered. Lab Data Attestation: I reviewed the patient's lab results. Labs: Laboratory Results - last 24 hr 05/17/21 05/17/21 10:17 10:17 WBC 14.9 H RBC 3.35 L Hgb 11.3 L Hct 33.8 L MCV 100.9 H MCH 33.7 H MCHC 33.4 RDW Std Deviation 72.4 H RDW Coeff of Mikel 19.3 H Plt Count 120 L MPV 11.7 Immature Gran % (Auto) 0.400 Neut % (Auto) 87.5 H Lymph % (Auto) 3.8 L [place] % (Auto) 8.1 Eos % (Auto) 0.1 Baso % (Auto) 0.1 Absolute Neuts (auto) 13.0 H Absolute Lymphs (auto) 0.56 L Nucleated RBC % 0 Anisocytosis 1+ Sodium 134 L Potassium 4.1 Chloride 103 Carbon Dioxide 24.0 Anion Gap 7 BUN 21 H Creatinine 1.04 Estim Creat Clear Calc 67.36 Est GFR (MDRD) Af Amer 89 Est GFR (MDRD) Non-Af 74 BUN/Creatinine Ratio 20.2 H Glucose 101 Calcium 9.3 Total Bilirubin 1.20 H AST 221 H ALT 157 H Alkaline Phosphatase 190 H Total Protein 7.0 Albumin 3.3 Globulin 3.7 Albumin/Globulin Ratio 0.9 Radiography Diagnostic Testing: Radiology Impression Acute Abdomen Series 05/17/21 10:04 IMPRESSION: Moderate amount of fecal material is seen in the colon. Electronically Signed: Will Nixon MD at 11:01 EDT , Service support , Discharge Plan Triage Chief Complaint: Constipation ED Provider: Bryn Vences Dx/Rx/DC Orders Clinical Impression: Constipation Instructions: ED Constipation (Adult) Prescriptions: No Action atorvastatin 40 MG tablet 40 mg PO DAILY RF: 0 aspirin 325 MG tablet 325 mg PO DAILY@0800 RF: 0 sulfamethoxazole-trimethoprim 1 TABLET tablet 1 tab PO QODAY RF: 0 pantoprazole 40 MG tablet 40 mg PO DAILY RF: 0 dicyclomine 10 MG capsule 10 mg PO BID RF: 0 omega-3 fatty acids-fish oil 1 EACH capsule 1 ea PO DAILY RF: 0 calcium carbonate-vitamin D3 1 TAB tablet 2 tab PO DAILY RF: 0 psyllium husk 0.4 GM capsule 0.4 gm PO DAILY RF: 0 Catalyn 2160 1 TABLET tablet 3 tab PO DAILY RF: 0 Referrals: TAMRA DUNAWAY [Other] - 5-7 Days Disposition Disposition: Home, Self Care
[2021-05-17 12:17] VITALS: BP 108/70; PULSE 82; RESP 17; O2SAT 96
[2021-05-17] MEDS: Lidocaine Jelly 2% 20 ML Syringe (URO-JET) 20 APPLIC TOPICAL (13:46)
[2021-05-17 14:35] VITALS: BP 122/69; PULSE 100; RESP 18; O2SAT 100
== END 2021-05-17 14:36 | disposition home or self-care (01) ==
PROVIDERS: Emergency Provider Emergency Medicine
DX: K59.00 Constipation, unspecified (principal); Z85.46 Personal history of malignant neoplasm of prostate; Z87.891 Personal history of nicotine dependence
CPT/HCPCS: 74022; 80053; 85025; 96360; 96361; 99285; J7040; A4216